=== PATIENT | male | born 1980 | race Caucasian/White ===

== ENCOUNTER 2019-11-20 | Emergency (ER) | payer OTHER | END 2019-11-21 00:05 | disposition home or self-care (01) | CPT/HCPCS: 36415; 80053; 82150; 83690; 85025; 81001; 74177; 99284; 96374; 96375 ×2; 96376; 96361 ×2; J2405; J1885; S0119; C9113; Q9967 ==

== ENCOUNTER 2022-03-09 04:02 | Emergency (ER) | payer OTHER ==
[2022-03-09 04:07] VITALS: BP 155/110; PULSE 89; RESP 16; TEMP 98.5
[2022-03-09] MEDS ORDERED: HYDROcodone/APAP 7.5-325MG 1 EACH TAB PO ONE (04:31)
[2022-03-09] MEDS ORDERED: IBUPROFEN 400 MG TAB PO STA (04:31)
[2022-03-09] MEDS ORDERED: predniSONE 20 MG TAB PO STA (04:31)
--- NOTE | 2022-03-09 04:51 | ED ---
Extremity Problem HPI - General Chief complaint: Extremity Problem,Nontraumatic Stated complaint: RT toe pain and swelling Time Seen by Provider: 03/09/22 04:13 Source: patient Mode of arrival: wheelchair Limitations: no limitations - History of Present Illness Initial comments: Patient's 41-year-old man complaining of right first toe pain. Patient noted that it had started yesterday getting progressively worse this morning. He did not have any injury. He also is having redness warmth and swelling. He indicates that started at the first MTP joint and then now is involving the entire first toe. No discharge. No fever or chills. No other systemic symptoms. MD Complaint: extremity pain, extremity swelling Onset/Timin -: days(s) Location: right, toe History of Same: No -: Yes arthralgia Radiation: none Quality: aching Consistency: constant Improves with: nothing Worsens with: weight bearing, walking, palpation Associated Symptoms: denies other symptoms - Related Data Previous Rx's Medication Instructions Recorded HYDROcodone/APAP 7.5-325MG [[place] 1 tab PO Q6HR PRN 3 Days #12 tab 11/20/19 7.5-325] Ondansetron Odt [Zofran Odt] 4 mg PO Q8HR PRN #30 tab 11/20/19 Tamsulosin [Flomax] 0.4 mg PO DAILY #7 cap 11/20/19 Colchicine 0.6 mg PO Q1H PRN #12 capsule 03/09/22 HYDROcodone/APAP 5-325MG [[place] 1 tab PO Q6HR PRN 3 Days #12 tab 03/09/22 5-325] Indomethacin [Indocin] 50 mg PO TID #12 capsule 03/09/22 predniSONE 60 mg PO DAILY #30 tab 03/09/22 Allergies Allergy/AdvReac Type Severity Reaction Status Date / Time No Known Allergies Allergy Verified 03/09/22 04:03 Review of Systems ROS Statement: Those systems with pertinent positive or pertinent negative responses have been documented in the HPI. ROS Other: All systems not noted in ROS Statement are negative. Constitutional: Denies: fever, chills Respiratory: Denies: cough, dyspnea Cardiovascular: Denies: chest pain, palpitations, edema Gastrointestinal: Denies: abdominal pain, nausea, vomiting Genitourinary: Denies: dysuria, hematuria Musculoskeletal: Reports: as per HPI, joint swelling, arthralgia. Denies: back pain Skin: Denies: rash, lesions Past Medical History Past Medical History: No Reported History History of Any Multi-Drug Resistant Organisms: None Reported Past Surgical History: No Surgical Hx Reported Past Psychological History: Depression Smoking Status: Former smoker Past Alcohol Use History: Occasional Past Drug Use History: None Reported General Exam Limitations: no limitations Course Vital Signs 03/09/22 04:03 Temperature 98.5 F Pulse Rate 89 Respiratory 16 Rate Blood Pressure 155/110 O2 Sat by Pulse 98 Oximetry Disposition Clinical Impression: Gout Disposition: HOME SELF-CARE Condition: Good Instructions (If sedation given, give patient instructions): Low Purine Diet (ED), Gout (ED) Prescriptions: Colchicine 0.6 mg PO Q1H PRN #12 capsule PRN Reason: Pain Indomethacin [Indocin] 50 mg PO TID #12 capsule HYDROcodone/APAP 5-325MG [[place] 5-325] 1 tab PO Q6HR PRN 3 Days #12 tab PRN Reason: Pain predniSONE 60 mg PO DAILY #30 tab Is patient prescribed a controlled substance at d/c from ED?: Yes When asked, does pt state using other controlled substances?: No If prescribed controlled substance>3 days was MAPS reviewed?: Prescribed <3 Days If opioid is for acute pain is fill amount 7 days or less?: Yes If Rx opioid, was Start Talking consent form obtained?: Yes Referrals: Xavier Singh [STAFF PHYSICIAN] - 1-2 days
== END 2022-03-09 05:33 | disposition home or self-care (01) ==
LOC: EC 04:02
DX: M10.9 Gout, unspecified (principal); F32.A Depression, unspecified; Z87.891 Personal history of nicotine dependence; Z79.899 Other long term (current) drug therapy
CPT/HCPCS: 99283; J7512

== ENCOUNTER → 2022-04-13 | Outpatient (CLI) | payer OTHER ==
--- NOTE | 2022-04-13 10:04 | XR ---
EXAMINATION TYPE: XR foot limited RT DATE OF EXAM: 04/13/2022 9:28 AM INDICATION: Patient age:Male; 41 years old; Reason for study: [id number]; [facility]. COMPARISON: None TECHNIQUE: The right foot was examined in the AP, oand lateral projections. FINDINGS: No evidence of any acute osseous pathology. No evidence of soft tissue swelling. Joints are preserve d. Calcaneal plantar spurring is present. IMPRESSION: No evidence of acute fracture.
== END | disposition home or self-care (01) ==
LOC: RADXRMAIN 09:10
PROVIDERS: ATTEND Family Medicine
DX: M79.674 Pain in right toe(s) (principal)

== ENCOUNTER 2024-06-12 10:50 | Emergency (ER) | payer OTHER ==
[2024-06-12 10:58] VITALS: RESP 18
--- NOTE | 2024-06-12 11:10 | ED ---
Lower Extremity Injury HPI - General Chief Complaint: Extremity Injury, Lower Stated Complaint: foot pain Time Seen by Provider: 06/12/24 11:09 Source: patient, RN notes reviewed Mode of arrival: ambulatory - History of Present Illness Initial Comments: 43-year-old male presented to ER with a chief complaint of right foot pain. Patient states he noticed lateral right foot pain started on . He does report it appears swollen and red. He denies any known injuries or traumas. He states it is painful to walk and put pressure on it. He has not had anything for pain at this time. Denies any calf pain, fevers, chills or other complaints. - Related Data Previous Rx's Medication Instructions Recorded HYDROcodone/APAP 7.5-325MG [[place] 1 tab PO Q6HR PRN 3 Days #12 tab 11/20/19 7.5-325] Ondansetron Odt [Zofran Odt] 4 mg PO Q8HR PRN #30 tab 11/20/19 Tamsulosin [Flomax] 0.4 mg PO DAILY #7 cap 11/20/19 Colchicine 0.6 mg PO Q1H PRN #12 capsule 03/09/22 HYDROcodone/APAP 5-325MG [[place] 1 tab PO Q6HR PRN 3 Days #12 tab 03/09/22 5-325] Indomethacin [Indocin] 50 mg PO TID #12 capsule 03/09/22 predniSONE 60 mg PO DAILY #30 tab 03/09/22 Allergies Allergy/AdvReac Type Severity Reaction Status Date / Time No Known Allergies Allergy Verified 06/12/24 10:58 Review of Systems ROS Statement: Those systems with pertinent positive or pertinent negative responses have been documented in the HPI. ROS Other: All systems not noted in ROS Statement are negative. Past Medical History Past Medical History: No Reported History Additional Past Medical History / Comment(s): scoliosis. partially deaf. arthritis History of Any Multi-Drug Resistant Organisms: None Reported Past Surgical History: No Surgical Hx Reported Past Psychological History: Depression Smoking Status: Former smoker Past Alcohol Use History: Occasional Past Drug Use History: None Reported General Exam General appearance: alert, in no apparent distress Respiratory exam: Present: normal lung sounds bilaterally. Absent: respiratory distress, wheezes, rales, rhonchi, stridor Cardiovascular Exam: Present: regular rate, normal rhythm, normal heart sounds. Absent: systolic murmur, diastolic murmur, rubs, gallop, clicks Extremities exam: Present: tenderness (Right proximal fifth metatarsal. There is overlying erythema. No calf tenderness. Full range of motion. No wounds.) Neurological exam: Present: alert, oriented X3, CN II-XII intact Psychiatric exam: Present: normal affect, normal mood Skin exam: Present: warm, dry, intact, normal color. Absent: rash Course Vital Signs 06/12/24 06/12/24 10:54 12:47 Temperature 97.9 F 97.8 F Pulse Rate 87 84 Respiratory 18 18 Rate Blood Pressure 134/91 131/88 O2 Sat by Pulse 96 97 Oximetry Medical Decision Making - Medical Decision Making Was pt. sent in by a medical professional or institution ([facility], [employer]BI[employer]IPMENT [employer]ICER, urgent care, hospital, or correction...) When possible be specific @ -No Did you speak to anyone other than the patient for history (EMS, parent, family, police, friend...)? What history was obtained from this source @ -No Did you review nursing and triage notes (agree or disagree)? Why? @ -I reviewed and agree with nursing and triage notes Were old charts reviewed (outside hosp., previous admission, EMS record, old EKG, old radiological studies, urgent care reports/EKG's, correction records)? Report findings @ -No old charts were reviewed Differential Diagnosis (chest pain, altered mental status, abdominal pain women, abdominal pain men, vaginal bleeding, weakness, fever, dyspnea, syncope, headache, dizziness, GI bleed, back pain, seizure, CVA, palpatations, mental health, musculoskeletal)? @ -Differential Musculoskeletal: Muscular strain, contusion, ligament sprain, fracture, arthritis, septic arthritis, bursitis, cellulitis, muscle spasm, nerve compression, DVT, arterial occlusion, herpes zoster, electrolyte abnormality, tumor.... This is not meant to be in all inclusive list EKG interpreted by me (3pts min.). @ -None done X-rays interpreted by me (1pt min.). @ -Right foot x-ray negative for acute osseous process. CT interpreted by me (1pt min.). @ -None done U/S interpreted by me (1pt. min.). @ -None done What testing was considered but not performed or refused? (CT, X-rays, U/S, labs)? Why? @ -None What meds were considered but not given or refused? Why? @ -None Did you discuss the management of the patient with other professionals (professionals i.e. , PA, MOBILE EQUIPMENT SERVICER, lab, RT, psych nurse, social security specialist, hot tamale worker, teacher, special loan officer, human services case manager)? Give summary @ -No Was smoking cessation discussed for >3mins.? @ -No Was critical care preformed (if so, how long)? @ -No Were there social determinants of health that impacted care today? How? (Homelessness, low income, unemployed, alcoholism, drug addiction, transportation, low edu. Level, literacy, decrease access to med. care, care home, re hab)? @ -No Was there de-escalation of care discussed even if they declined (Discuss DNR or withdrawal of care, Hospice)? DNR status @ -No What co-morbidities impacted this encounter? (DM, HTN, Smoking, COPD, CAD, Cancer, CVA, ARF, Chemo, Hep., AIDS, mental health diagnosis, sleep apnea, morbid obesity)? @ -None Was patient admitted / discharged? Hospital course, mention meds given and route, prescriptions, significant lab abnormalities, going to OR and other pertinent info. @ -Discharge. 43-year-old male presented the ER for evaluation of right foot pain. History and physical exam completed. Vitals within normal limits. Right lower extremity neurovascular intact. There is tenderness over proximal fourth and fifth metatarsals. Patient has full active range of motion. No overlying skin changes. X-rays obtained negative. Patient received p.o. ibuprofen for pain control in the ER. Pain believed to me soft tissue in nature. X-ray results discussed with patient. Conservative treatment options discussed. Advise close follow-up with PCP, referral given. Return parameters discussed. Patient discharged stable condition with follow-up to PCP. Patient verbally expressed understanding agree with care plan. Case discussed with ED attending, Dr. Caldera. Undiagnosed new problem with uncertain prognosis? @ -No Drug Therapy requiring intensive monitoring for toxicity (Heparin, Nitro, Insulin, Cardizem)? @ -No Were any procedures done? @ -No Diagnosis/symptom? @ -Foot pain Acute, or Chronic, or Acute on Chronic? @ -Acute Uncomplicated (without systemic symptoms) or Complicated (systemic symptoms)? @ -Uncomplicated Side effects of treatment? @ -No Exacerbation, Progression, or Severe Exacerbation? @ -No Poses a threat to life or bodily function? How? (Chest pain, [place], [place], pneumonia, PE, COPD, DKA, ARF, appy, cholecystitis, CVA, Diverticulitis, Homicidal, Suicidal, threat to staff... and all critical care pts) @ -No - Radiology Data Radiology results: report reviewed, image reviewed Disposition Clinical Impression: Foot pain Disposition: HOME SELF-CARE Condition: Stable Instructions (If sedation given, give patient instructions): Foot Sprain (ED) Additional Instructions: Recommend [id number] anti-inflammatories including ibuprofen. Continue to rest ice elevate and use compression. Follow-up with PCP. Return to the ER for any new or worsening concerns. Is patient prescribed a controlled substance at d/c from ED?: No Referrals: None,Stated [Primary Care Provider] - 1-2 days Forms: Area PCPs Time of Disposition: 12:34
[2024-06-12] MEDS: IBUPROFEN 600 MG TAB PO STA (11:23)
--- NOTE | 2024-06-12 12:13 | XR ---
EXAMINATION TYPE: XR foot complete RT DATE OF EXAM: 06/12/2024 COMPARISON: 04/13/2022 HISTORY: Lateral foot pain TECHNIQUE: 3 view right foot FINDINGS: No acute fractures or dislocations evident. Plantar calcaneal heel spur present. Joint spac es are preserved. Soft tissues are normal. No significant interval change. Follow up exams can be performed 7-10 days from acute trauma for continued pain IMPRESSION: 1. No acute osseous abnormality right foot [facility], Workstation: [id number], 06/12/2024 12:11 PM
[2024-06-12 12:49] VITALS: BP 131/88; PULSE 84; TEMP 97.8
== END 2024-06-12 12:47 | disposition home or self-care (01) ==
LOC: EC 10:50
CPT/HCPCS: 99283

== ENCOUNTER → 2024-08-18 | Outpatient (CLI) | payer OTHER ==
--- NOTE | 2024-08-20 23:31 | CT ---
EXAMINATION TYPE: CT iac wo con DATE OF EXAM: 08/18/2024 8:30 AM COMPARISON: None. CLINICAL INDICATION: Male, 43 years old with history of H83.8X1 DISEASES R EAR H83.8X2 DISEASES L EA R, Chronic hearing loss TECHNIQUE: Axial images were obtained at 1 mm thick sections. Reconstructed images obtained at 1 mm thick sectio ns. Study is without contrast. FINDINGS: Mastoid air cells are clear. External auditory canals are patent. Middle ears are clear. Internal auditory canals are normal witho ut expansion or erosion. No cerebellar pontine angle masses are evident. Cochlea and semicircular canals are normal. Incus and malleus have normal orientation. Scutum are normal. Attics are clear. There is been prior uncinectomies. Retention cyst is within the left maxillary sinus IMPRESSION: 1. NO SUSPICIOUS ACUTE ABNORMALITY TO ACCOUNT FOR PATIENT'S SYMPTOMS BILATERAL INTERNAL AUDITORY MARY LS STUDY. [facility], , 08/20/2024 11:29 PM
== END | disposition home or self-care (01) ==
LOC: RADCTMAIN 08:00
PROVIDERS: ATTEND Otolaryngology Otology & Neurotology
DX: H83.8X1 Other specified diseases of right inner ear (principal); H83.8X2 Other specified diseases of left inner ear
CPT/HCPCS: 70480